=== PATIENT | female | born 1935 | race Caucasian/White ===

== ENCOUNTER → 2016-08-06 | Outpatient (CLI) | payer OTHER ==
[~2016-08-06] MED LIST: ACET-1311 PO; ASPEC81 PO; ASPI81TA28 PO; ATOR-22 PO; LISI-729 PO; LISI5TAB3 PO; METO25TA3 PO; NAPR1TAB9 PO; NTRGSL/4 UT
--- NOTE | 2016-08-06 15:37 | MAMMOGRAPHY REPORT ---
UNILATERAL RIGHT DIGITAL SCREENING MAMMOGRAM TOMOSYNTHESIS WITH CAD: 08/06/2016 CLINICAL HISTORY: Routine screening. Patient has no complaints. TECHNIQUE: Right breast tomosynthesis in addition to standard 2D mammography was performed. Current study was also evaluated with a Computer Aided Detection (CAD) system. COMPARISON: Comparison is made to exams dated: 08/04/2015 mammogram, 08/17/2014 mammogram, 06/14/2014 mammogram, 06/12/2013 mammogram, 06/06/2012 mammogram, and 06/01/2011 mammogram - [facility]. BREAST COMPOSITION: There are scattered areas of fibroglandular density in the right breast. FINDINGS: There are mild vascular calcifications in the right breast. A bilobed 8 mm mass in the 3: 00 right breast has new coarse calcification. The mass is stable in size dating back to at least 20 07, most likely a degenerating fibroadenoma. No suspicious mass, architectural distortion or cluste r of suspicious microcalcifications is seen. IMPRESSION: ACR BI-RADS CATEGORY 1: NEGATIVE There is no mammographic evidence of malignancy. A 1 year screening mammogram is recommended. The p atient will receive written notification of the results. Approximately 10% of breast cancers are not detected with mammography. A negative mammographic repor t should not delay biopsy if a clinically suggestive mass is present. Juanita Houser M.D. ay/:08/06/2016 15:18:19 Transition Of Care Specialist: Madalyn FREGOSO(Michelet)([place]), [facility] letter sent: Normal 1/2 BI-RADS Code: ACR BI-RADS Category 1: Negative
== END | disposition home or self-care (01) ==
LOC: C.MAMM 13:24
PROVIDERS: ATTEND Family Medicine
DX: Z12.31 Encounter for screening mammogram for malignant neoplasm of breast (principal)

== ENCOUNTER 2016-11-18 14:26 | Emergency (ER) | payer OTHER ==
[~2016-11-18] VITALS: Ht 162.6 cm; Wt 85.0 kg
[~2016-11-18 14:26] MED LIST changes: -ASPI81TA28 PO; -LISI-729 PO; -NAPR1TAB9 PO
[2016-11-18 14:33] VITALS: TEMP 36.8; Ht 162.6 cm; Wt 85.0 kg
[2016-11-18] MEDS ORDERED: FENTANYL CITRATE INJ 50 MCG/1 ML 2 ML VIAL IV STA (14:55)
[2016-11-18] MEDS ORDERED: DIPHTHERIA/TETANUS/PERTUSSIS 0.5 ML SYR/VIAL IM. ONE (15:15)
[2016-11-18] MEDS ORDERED: CEFAZOLIN SOD 1000MG/55 ML D5W IV STA (15:15)
[2016-11-18 15:24] LABS: BASO % 0.2 %; BASO ABS # 0.03 K/uL (0-0.2); COMPLETE YES; EOS % 1.5 %; HEMATOCRIT 40.8 % (37-47); IG% 0.4 %; LYMPH % 16.1 %; LYMPH ABS # 2.48 K/uL (1.2-3.4); MEAN CELL VOLUME 96.2 fL (80-100); MEAN CORPUSCULAR HEMOGLOBIN 32.1 pg (25-34); MEAN CORPUSCULAR HGB CONC 33.3 g/dl (32-36); NEUT % 75.8 %; PLATELET COUNT 220 K/uL (130-400); RED BLOOD COUNT 4.24 M/uL (4.2-5.4); WHITE BLOOD COUNT 15.43 K/uL (4.8-10.8)
[2016-11-18] MEDS ORDERED: NAPR1TAB9 PO (15:30)
[2016-11-18] MEDS ORDERED: FENTANYL CITRATE INJ 50 MCG/1 ML 2 ML VIAL IV ONE (15:30)
[2016-11-18] MEDS ORDERED: ASPI81TA28 PO (15:30)
[2016-11-18] MEDS ORDERED: LISI-729 PO (15:30)
[2016-11-18 15:31] LABS: PARTIAL THROMBOPLASTIN RATIO 0.9; PROTHROMBIN TIME (PATIENT) 10.3 SECONDS (9.0-12.0)
[2016-11-18 15:42] LABS: ALT/SGPT 38 U/L (12-78); AST/SGOT 47 U/L (15-37); BLOOD UREA NITROGEN 11 mg/dl (7-18); CALCIUM 8.4 mg/dl (8.5-10.1); CARBON DIOXIDE 27 mmol/L (21-32); CHLORIDE 107 mmol/L (98-107); GLUCOSE 174 mg/dl (70-99); POTASSIUM 3.6 mmol/L (3.5-5.1); SODIUM 143 mmol/L (136-145)
[2016-11-18 15:47] LABS: ALKALINE PHOSPHATASE 103 U/L (45-117); CKMB/CK RATIO 2.8 (0-3.0)
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
[2016-11-18] MEDS ORDERED: OPTIRAY 320 IV PRN (16:15)
[2016-11-18] MEDS ORDERED: MoRPHine SULFATE 4 MG/ML 1 ML CARP\\VIAL IV STA (16:24)
[2016-11-18] MEDS ORDERED: LIDO/EPINEPHRINE/SOD BICARB 20 ML VIAL INFIL ONE (16:27)
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
[2016-11-18 17:31] VITALS: BP 187/68; PULSE 62; O2SAT 98
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
== END 2016-11-18 17:31 | disposition short-term general hospital (02) ==
LOC: EDBD 14:26 → C.EDA 14:33
DX: S12.9XXA Fracture of neck, unspecified, initial encounter (principal); S06.4X9A Epidural hemorrhage with loss of consciousness of unspecified duration, initial encounter; S22.41XA Multiple fractures of ribs, right side, initial encounter for closed fracture; S91.011A Laceration without foreign body, right ankle, initial encounter; S60.222A Contusion of left hand, initial encounter; S80.02XA Contusion of left knee, initial encounter; S80.01XA Contusion of right knee, initial encounter; V49.40XA Driver injured in collision with unspecified motor vehicles in traffic accident, initial encounter; Y92.488 Other paved roadways as the place of occurrence of the external cause; S60.512A Abrasion of left hand, initial encounter; S80.211A Abrasion, right knee, initial encounter; S80.212A Abrasion, left knee, initial encounter; M79.651 Pain in right thigh; R91.1 Solitary pulmonary nodule; I10 Essential (primary) hypertension; E78.5 Hyperlipidemia, unspecified; I25.2 Old myocardial infarction; Z95.0 Presence of cardiac pacemaker; Z79.82 Long term (current) use of aspirin; Z83.3 Family history of diabetes mellitus; Z82.49 Family history of ischemic heart disease and other diseases of the circulatory system; Z23 Encounter for immunization